=== PATIENT | female | born 1965 | race Hispanic/Latino ===

== ENCOUNTER 2017-11-30 08:57 | Day surgery (SDC) | payer BC ==
[2017-11-30] MEDS ORDERED: Bupivacaine 0.5% Inj(30mL) ONE (11:34)
[2017-11-30] MEDS ORDERED: Lidocaine 1% w Epi 1:100,000 Inj ONE (11:34)
[2017-11-30] MEDS ORDERED: Propofol 10 mg/ml Inj (20 ML) ONE ×2 (12:24→13:09)
[2017-11-30] MEDS ORDERED: Midazolam 2 MG/2 ML VIAL ONE (12:25)
[2017-11-30] MEDS ORDERED: Rocuronium 10 mg/ml (5 ml) ONE (12:42)
[2017-11-30] MEDS ORDERED: Glycopyrrolate 0.2 mg/ml (2ml vial) ONE (12:47)
[2017-11-30] MEDS ORDERED: Neostigmine Methylsulfate 3mg/3ml Syringe IV ONE (13:01)
[2017-11-30] MEDS ORDERED: Lidocaine 1% w Epi 1:100,000 Inj IJ ONE (13:05)
[2017-11-30] MEDS ORDERED: Labetalol 5 mg/ml Inj 20ML ONE (13:46)
[2017-11-30] MEDS ORDERED: Bupivacaine 0.5% Inj(30mL) IJ ONE (13:48)
[2017-11-30] MEDS ORDERED: Oxycodone/Acetaminophen 5/325 mg Tab PO PRN (13:51)
--- NOTE | 2017-11-30 13:51 | PCM.SURG1 ---
Surgeon's Initial Post Op Note - Surgeon's Notes Surgeon: Pratibha Quick MD Mental Health Associate: Ren Gracia PA-C Type of Anesthesia: General Endo Anesthesia Administered By: Dr. Cummings Pre-Operative Diagnosis: Left knee medial meniscus tear Operative Findings: see full note Post-Operative Diagnosis: same Operation Performed: left knee arthroscopy with medial meniscectomy Specimen/Specimens Removed: none Estimated Blood Loss: EBL {In ML}: 10 Blood Products Given: N/A Drains Used: No Drains Post-Op Condition: Fair Date of Surgery/Procedure: 11/30/17 Time of Surgery/Procedure: 13:51
[2017-11-30] MEDS ORDERED: Albuterol 0.083% Inhal Sol (2.5 mg/3 mL) UD INH PRN (13:55)
[2017-11-30] MEDS ORDERED: Lactated Ringer's 1,000 ML IV SCH (14:00)
[2017-11-30] MEDS ORDERED: DiphenhydrAMINE 50 mg/ml Inj IVP ONE ×2 (14:20)
[2017-11-30] MEDS ORDERED: DiphenhydrAMINE 50 mg/ml Inj ONE (14:22)
[2017-11-30 15:14] VITALS: BP 97/59; PULSE 65; RESP 20; TEMP 98.6; O2SAT 92
[2017-11-30 15:47] VITALS: BMI 29.0
[2017-11-30] MEDS ORDERED: Oxycodone/Acetaminophen 5/325 mg Tab ONE (16:26)
--- NOTE | 2017-11-30 23:25 | OP ---
PROCEDURE DATE: 11/30/2017 PREOPERATIVE DIAGNOSIS: Left knee medial meniscal tear. 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 PROCEDURE: Left knee arthroscopy with medial meniscectomy. SURGEON: Aime Quick MD BLUEPRINT TRACER: Dr. Quick is assisted by Stormy Reece, the physician reading assistant. Sreekanth Blairandra was scrubbed and present throughout the entire case. ANESTHESIA: General. COMPLICATIONS: None. ESTIMATED BLOOD LOSS: 5 mL. INDICATIONS FOR PROCEDURE: This is a 52-year-old female who presented with complaints of longstanding left knee pain. Clinical examination was consistent with some medial joint line tenderness, tenderness at the extremes of knee flexion and a positive Yaakov's. MRI examination was consistent with a tear of the medial meniscus. After a period of failed nonsurgical management, recommendations were for left knee arthroscopy. The risks, benefits, and alternatives of the procedure were discussed with the patient including the possibility of developing arthritis and chronic pain and stiffness, and she understood these risks and the informed consent was obtained. OPERATIVE PROCEDURE: After the surgical site was signed and verified in the preoperative holding area, the patient was taken to the operating room and placed supine on the operating room table. After the administration of general anesthesia, patient received 600 mg of clindamycin IV. Tourniquet was placed about the left thigh. Care was taken to make sure all bony prominences and nerves were well padded and protected. Venodyne boots were placed on the nonoperative extremity, and the left lower extremity was prepped and draped in the usual sterile fashion. The bony landmarks were identified about the left knee and the portal sites were injected with a total of 10 mL of 1% lidocaine with epi. An anterolateral arthroscopy portal was established and an arthroscope was inserted into the knee joint. Patellofemoral articulation was evaluated. Patient was noted to have some grade I chondromalacia of the patella. The medial and lateral gutters as well as suprapatellar recess were noted to be free of any loose bodies or pathologic plica. The knee was taken through range of motion and patella was noted to track normally in the trochlea. At this point, the medial compartment was evaluated through an anteromedial portal. The medial meniscus was probed and patient was noted to have a complex tear of the posterior horn extending into the mid body of the meniscus. Using a combination of basket forceps and full-radius shaver, a meniscectomy was performed, resecting the posterior horn back to a small but stable rim. The meniscal remnant was again probed and was noted to be stable. The anterior horn was noted to be intact and stable as well. Next, the chondral surfaces of the medial femoral condyle was noted to have approximately 1 x 1 cm lesion along the medial aspect of the weightbearing portion, which did not appear to be full thickness. The periphery of the lesion was probed circumferentially and no loose flaps of cartilage were appreciated. Satisfied, the intercondylar notch was then evaluated. The ACL was well visualized, probed and appeared to be intact. The PCL was also visualized and appeared to be intact. Next, the lateral compartment was evaluated. Lateral meniscus was probed and was noted to be intact. The chondral surfaces of the lateral tibial plateau was noted to have some grade I chondromalacia. The intractable portion of the popliteus tendon was also well visualized and appeared to be intact. At this point, the knee joint was irrigated through the arthroscopic cannula and all instruments were removed. All portal sites were closed using interrupted 3-0 Vicryl and Dermabond for the skin. A sterile dressing was applied and the patient was awakened from the procedure and taken to recovery room in stable condition. Aime Quick MD
== END 2017-11-30 17:00 | disposition home or self-care (01) ==
LOC: SDS 08:57
PROVIDERS: ATTEND Orthopaedic Surgery
DX: S83.242A Other tear of medial meniscus, current injury, left knee, initial encounter (principal); M22.42 Chondromalacia patellae, left knee
CPT/HCPCS: 29881; 97116; 97161; G8978; G8979; G8980; J0131; J1200; J2001; J2250; J2704; J2710; J2765; J3010; J7120 ×2

== ENCOUNTER 2018-03-24 08:50 | Emergency (ER) | payer BC ==
[2018-03-24 08:52] VITALS: BMI 31.6
[2018-03-24 09:14] VITALS: BP 144/88; PULSE 95; RESP 18; TEMP 98.8; O2SAT 99
--- NOTE | 2018-03-24 09:33 | ED PDOC ---
Arrival/HPI - General Chief Complaint: Back Pain Time Seen by Provider: 03/24/18 09:13 Historian: Patient - History of Present Illness Narrative History of Present Illness (Text): 03/24/18 09:22 A 53 year old male, with no significant past medical history, presents to the emergency department complaining of right-side neck pain for 2 weeks. Patient reports 2 weeks ago she awoke with neck pain/stiffness. 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 However starting 2 days ago, pain worsened, with pain radiating in right-side head/ear. Patient became concerned and decided to come to the ER to be evaluated. States she is able to move neck. Patient denies any injury/trauma, or any other complaints at this time. PMD: Dr. Fowler and Dr. Ibrahim 03/24/18 13:08 Time/Duration: > week (2 weeks, worsened 2 days ago) Symptom Course: Worsening Past Medical History - Provider Review Nursing Documentation Reviewed: Yes - Past History Past History: Non-Contributing - Infectious Disease Hx of Infectious Diseases: None - Tetanus Immunization Tetanus Immunization: >10 years Ago - Cardiac Hx Cardiac Disorders: No Hx Pacemaker: No - Pulmonary Hx Asthma: Yes - Neurological Hx Paralysis: No - Hematological/Oncological Hx Blood Transfusions: No Hx Blood Transfusion Reaction: No - Musculoskeletal/Rheumatological Hx Musculoskeletal Disorders: No - Psychiatric Hx Emotional Abuse: No Hx Physical Abuse: No Hx Substance Use: No - Surgical History Hx Hysterectomy: Yes Hx Musculoskeletal Surgery: Yes - Anesthesia Hx Anesthesia Reactions: No Hx Malignant Hyperthermia: No - Suicidal Assessment Feels Threatened In Home Enviroment: No Family/Social History - Physician Review Nursing Documentation Reviewed: Yes Family/Social History: No Known Family HX Smoking Status: Never Smoked Hx Alcohol Use: Yes Frequency of alcohol use: Socially Hx Substance Use: No Hx Substance Use Treatment: No Allergies/Home Meds Allergies/Adverse Reactions: Allergies apple Allergy (Verified 03/24/18 09:14) ANAPHYLAXIS ketorolac [From Toradol] Allergy (Verified 03/24/18 09:14) ANAPHYLAXIS nut - unspecified Allergy (Verified 03/24/18 09:14) ANAPHYLAXIS Penicillins Allergy (Verified 03/24/18 09:14) ANAPHYLAXIS Home Medications: Home Meds Medication Instructions Recorded Confirmed RX: Albuterol HFA [Ventolin HFA 90 2 puff IH Q4H PRN 11/20/17 03/24/18 mcg/actuation (8 g)] Review of Systems - Physician Review All systems were reviewed & negative as marked: Yes - Review of Systems Constitutional: absent: Other (no injury/trauma) Musculoskeletal: Neck Pain (right-side, radiating to right-sidehead/ear.) Physical Exam Vital Signs Reviewed: Yes Vital Signs Temp Pulse Resp BP Pulse Ox 03/24/18 09:10 98.8 F 95 H 18 144/88 99 Temperature: Afebrile Blood Pressure: Normal Pulse: Regular Respiratory Rate: Normal Appearance: Positive for: Well-Appearing, Non-Toxic, Comfortable Pain Distress: None Mental Status: Positive for: Alert and Oriented X 3 - Systems Exam Head: Present: Atraumatic, Normocephalic Pupils: Present: PERRL Extroacular Muscles: Present: EOMI Conjunctiva: Present: Normal Mouth: Present: Moist Mucous Membranes Neck: Present: Normal Range of Motion, Paraspinal Tenderness (paracervical tenderness) Respiratory/Chest: Present: Clear to Auscultation, Good Air Exchange. No: Respiratory Distress, Accessory Muscle Use Cardiovascular: Present: Regular Rate and Rhythm, Normal S1, S2. No: Murmurs Abdomen: No: Tenderness, Distention, Peritoneal Signs Back: Present: Normal Inspection Upper Extremity: Present: Normal Inspection. No: Cyanosis, Edema Lower Extremity: Present: Normal Inspection. No: Edema Neurological: Present: GCS=15, CN II-XII Intact, Speech Normal Skin: Present: Warm, Dry, Normal Color. No: Rashes Psychiatric: Present: Alert, Oriented x 3, Normal Insight, Normal Concentration Medical Decision Making ED Course and Treatment: 03/24/18 09:25 Impression: 53 year old female with right-side neck pain, worsened 2 days ago now radiating to right-side head/ear. Physical exam shows paracervical tenderness. suspect torticollis neck supple. right para cervical ttp. no fall/trauma indication for emergent imaging. advise outptuf. Plan: -- Tylenol -- Flexeril -- Reassess and disposition Progress Notes: 03/24/18 13:08 - Medication Orders Current Medication Orders: Discontinued Medications Acetaminophen (Tylenol 325mg Tab) 975 mg PO STAT STA Stop: 03/24/18 09:26 Cyclobenzaprine HCl (Flexeril) 10 mg PO STAT STA Stop: 03/24/18 09:26 - Scribe Statement The provider has reviewed the documentation as recorded by the Tony Carrera Provider Scribe Attestation: All medical record entries made by the Scribe were at my direction and personally dictated by me. I have reviewed the chart and agree that the record accurately reflects my personal performance of the history, physical exam, medical decision making, and the department course for this patient. I have also personally directed, reviewed, and agree with the discharge instructions and disposition. Disposition/Present on Arrival - Present on Arrival Any Indicators Present on Arrival: No History of DVT/PE: No History of Uncontrolled Diabetes: No Urinary Catheter: No History of Decub. Ulcer: No History Surgical Site Infection Following: None - Disposition Have Diagnosis and Disposition been Completed?: Yes Diagnosis: Neck pain Disposition: HOME/ ROUTINE Disposition Time: 09:10 Condition: STABLE Discharge Instructions (ExitCare): Neck Pain, Torticollis (DC) Additional Instructions: follow up with your doctor/clinic. you may need further testing as an outpatient. return to er with worsening symptoms or concerns. Prescriptions: Cyclobenzaprine [Cyclobenzaprine HCl] 10 mg PO DAILY PRN #10 tab PRN Reason: Muscle Spasm Lidocaine 5% [Lidoderm] 1 each TP DAILY PRN #4 patch PRN Reason: Pain, Mild (1-3) Referrals: Rogelio Betancur MD [Staff Provider] - Follow up with primary Forms: [employer] ([place])
== END 2018-03-24 09:50 | disposition home or self-care (01) ==
LOC: ED 08:52
DX: M54.2 Cervicalgia (principal)

== ENCOUNTER 2018-03-26 11:22 | Emergency (ER) | payer BC ==
[2018-03-26 11:22] VITALS: BMI 31.6
[2018-03-26 11:42] VITALS: TEMP 99.3
[2018-03-26] MEDS ORDERED: Morphine 4 mg/ml ISec IVP STA (11:45)
--- NOTE | 2018-03-26 11:55 | ED PDOC ---
Arrival/HPI - General Chief Complaint: ENT Problem Time Seen by Provider: 03/26/18 11:24 Historian: Patient - History of Present Illness Narrative History of Present Illness (Text): 03/26/18 11:46 53 year old female, with no significant past medical history, presents to the Emergency Department complaining of right sided neck pain since 2 weeks. Patient was seen in the Emergency Department on 03/22/18 for the presented symptoms and was discharged home after improvement. Patient states unchanged symptoms after discharge and was asked by NPN from [employer] to come to the ED to rule out meningitis. Patient denies any fever, fall or trauma or any cervical manipulation s/p discharge. Patient denies any other associated somatic complaints. Patient denies any fever, chills, nausea, vomiting, diarrhea, abdominal pain, chest pain, shortness of breath, cough, headache, dizziness, back pain, or any other complaints. PMD: Dr. Ibrahim Time/Duration: > week Symptom Onset: Gradual Symptom Course: Unchanged Quality: Aching Activities at Onset: Light Context: Home Past Medical History - Provider Review Nursing Documentation Reviewed: Yes - Past History Past History: Non-Contributing - Infectious Disease Hx of Infectious Diseases: None - Tetanus Immunization Tetanus Immunization: >10 years Ago - Reproductive Menopause: Yes - Cardiac Hx Cardiac Disorders: No Hx Pacemaker: No - Pulmonary Hx Asthma: Yes - Neurological Hx Paralysis: No - Hematological/Oncological Hx Blood Transfusions: No Hx Blood Transfusion Reaction: No - Musculoskeletal/Rheumatological Hx Musculoskeletal Disorders: No - Psychiatric Hx Emotional Abuse: No Hx Physical Abuse: No Hx Substance Use: No - Surgical History Hx Hysterectomy: Yes Hx Musculoskeletal Surgery: Yes - Anesthesia Hx Anesthesia Reactions: No Hx Malignant Hyperthermia: No - Suicidal Assessment Feels Threatened In Home Enviroment: No Family/Social History - Physician Review Nursing Documentation Reviewed: Yes Family/Social History: Unknown Family HX Smoking Status: Never Smoked Hx Alcohol Use: Yes Hx Substance Use: No Hx Substance Use Treatment: No Allergies/Home Meds Allergies/Adverse Reactions: Allergies apple Allergy (Verified 03/26/18 11:42) ANAPHYLAXIS ketorolac [From Toradol] Allergy (Verified 03/26/18 11:42) ANAPHYLAXIS nut - unspecified Allergy (Verified 03/26/18 11:42) ANAPHYLAXIS Penicillins Allergy (Verified 03/26/18 11:42) ANAPHYLAXIS Home Medications: Home Meds Medication Instructions Recorded Confirmed RX: Albuterol HFA [Ventolin HFA 90 2 puff IH Q4H PRN 11/20/17 03/26/18 mcg/actuation (8 g)] Review of Systems - Physician Review All systems were reviewed & negative as marked: Yes - Review of Systems Constitutional: absent: Fevers Respiratory: absent: SOB, Cough Cardiovascular: absent: Chest Pain, [place] Gastrointestinal: absent: Abdominal Pain, Diarrhea, Nausea, Vomiting Musculoskeletal: Neck Pain. absent: Back Pain Skin: absent: Rash Neurological: absent: Headache, Dizziness Physical Exam Vital Signs Reviewed: Yes Vital Signs Temp Pulse Resp BP Pulse Ox 03/26/18 11:38 99.3 F 110 H 18 159/78 H 99 Temperature: Afebrile Blood Pressure: Normal Pulse: Tachycardic Respiratory Rate: Normal Appearance: Positive for: Well-Appearing, Non-Toxic, Comfortable Pain Distress: None Mental Status: Positive for: Alert and Oriented X 3 - Systems Exam Head: Present: Atraumatic, Normocephalic Pupils: Present: PERRL Extroacular Muscles: Present: EOMI Conjunctiva: Present: Normal Neck: Present: Paraspinal Tenderness (right sided ). No: Meningeal Signs, MIDLINE TENDERNESS, JVD Respiratory/Chest: Present: Clear to Auscultation, Good Air Exchange. No: Respiratory Distress, Accessory Muscle Use Cardiovascular: Present: Regular Rate and Rhythm, Normal S1, S2. No: Murmurs Abdomen: No: Tenderness, Distention, Peritoneal Signs Back: Present: Normal Inspection Upper Extremity: Present: Normal Inspection. No: Cyanosis, Edema Lower Extremity: Present: Normal Inspection. No: Edema Neurological: Present: GCS=15, CN II-XII Intact, Speech Normal Skin: Present: Warm, Dry, Normal Color. No: Rashes Psychiatric: Present: Alert, Oriented x 3, Normal Insight, Normal Concentration Medical Decision Making ED Course and Treatment: 03/26/18 11:58 Impression: 53 year old female presents to the Emergency Department complaining of right sided neck pain. Differential Diagnosis included but are not limited to: Musculoskeletal. no menignmus, no fever, no leukocytosis. exam consistent with msk pain. Plan: -- CT of Cervical Spine -- CT of Head -- Labs -- Morphine -- Reassess and disposition Prior Visits: Notes and results from previous visits were reviewed. Progress Notes: 03/29/18 19:[address] shows no fracture. pain improved. advise outpt fu. no mengimus, no fever, 2 weeks of neck pain . - RAD Interpretation Narrative RAD Interpretations (Text): 03/26/18 12:53 CT of head reviewed by radiologist, shows: FINDINGS: HEMORRHAGE: No intracranial hemorrhage. BRAIN: Subtle subcortical white matter lucency is appreciated at the bilateral frontal lobes which likely reflects trace chronic microangiopathy. Good corticomedullary differentiation is preserved above and below the tentorium and there is no mass effect. There is no suspicious extra-axial fluid collection identified in the midline brain and appears diffusely unremarkable. VENTRICLES: Unremarkable. No hydrocephalus. CALVARIUM: No destructive bony lesion or displaced fracture identified including through the skullbase. PARANASAL SINUSES: Unremarkable as visualized. No significant inflammatory changes. MASTOID AIR CELLS: Unremarkable as visualized. No inflammatory changes. OTHER FINDINGS: None. IMPRESSION: Trace age-related neuro degenerative changes are suspected. No mass effect intracranial hemorrhage or cortical edema. No suspicious extra-axial collection. No fracture of the calvarium or skullbase appreciable. 03/26/18 13:01 CT of Cervical Spine reviewed by radiologist, shows: FINDINGS: VERTEBRAE: Subtle reversal cervical curvature without fracture or spondylolisthesis identified. Multilevel facet arthropathy identified as well as multilevel degenerative spondylosis with the C1-2 articulation is mildly degenerated but intact otherwise. Craniocervical junction appears unremarkable. The odontoid process appears normal. Prevertebral paraspinal soft tissues appear diffusely unremarkable as well. DISCS/SPINAL CANAL/NEURAL FORAMINA: Limited disc osteophyte complexes appreciated at C4-5 with degenerative changes resulting in moderate to severe left neural foraminal stenosis. [id number] bilateral C5-6 and C6-7 degenerative neural foraminal stenoses are identified without significant central stenosis accompanying these levels. OTHER FINDINGS: None. IMPRESSION: There is a subtle reversal of cervical curvature without fracture or spondylolisthesis identified. Multilevel degenerative neural foraminal stenoses are identified at mid and inferior levels beginning at C4-5 indenting at C6-7 as per above. No significant central canal stenosis appreciable. Multilevel small disc osteophyte complexes are identified at the inferior cervical spine. Radiology Orders: 03/26/18 11:45 CERVICAL SPINE W/O CONTRAST [CT] Stat Lay Out Drafter: Radiologist - Medication Orders Current Medication Orders: Morphine Sulfate (Morphine) 4 mg IVP STAT STA Stop: 03/26/18 11:46 - Scribe Statement The provider has reviewed the documentation as recorded by the Scribe Luba Mustafa. All medical record entries made by the Scribe were at my direction and personal ly dictated by me. I have reviewed the chart and agree that the record accurately reflects my personal performance of the history, physical exam, medical decision making, and the department course for this patient. I have also personally directed, reviewed, and agree with the discharge instructions and disposition. Disposition/Present on Arrival - Present on Arrival Any Indicators Present on Arrival: No History of DVT/PE: No History of Uncontrolled Diabetes: No Urinary Catheter: No History of Decub. Ulcer: No History Surgical Site Infection Following: None - Disposition Have Diagnosis and Disposition been Completed?: Yes Diagnosis: Neck pain Disposition: HOME/ ROUTINE Disposition Time: 14:00 Condition: STABLE Discharge Instructions (ExitCare): Neck Pain Additional Instructions: return to er with worseing symptoms or concerns. Referrals: Sudeep Ibrahim MD [Primary Care Provider] - Follow up with primary Forms: [employer] ([place])
--- NOTE | 2018-03-26 12:50 | CT ---
Date of service: 03/26/2018 PROCEDURE: CT HEAD WITHOUT CONTRAST. HISTORY: abreu COMPARISON: None available. TECHNIQUE: Axial computed tomography images were obtained through the head/brain without intravenous contrast. Radiation dose: Total exam DLP = 964.68 mGy-cm. This CT exam was performed using one or more of the following dose reduction techniques: Automated exposure control, adjustment of the mA and/or kV according to patient size, and/or use of iterative reconstruction technique. FINDINGS: HEMORRHAGE: No intracranial hemorrhage. BRAIN: Subtle subcortical white matter lucency is appreciated at the bilateral frontal lobes which likely reflects trace chronic microangiopathy. Good corticomedullary differentiation is preserved above and below the tentorium and there is no mass effect. There is no suspicious extra-axial fluid collection identified in the midline brain and appears diffusely unremarkable. VENTRICLES: Unremarkable. No hydrocephalus. CALVARIUM: No destructive bony lesion or displaced fracture identified including through the skullbase. PARANASAL SINUSES: Unremarkable as visualized. No significant inflammatory changes. MASTOID AIR CELLS: Unremarkable as visualized. No inflammatory changes. OTHER FINDINGS: None. IMPRESSION: Trace age-related neuro degenerative changes are suspected. No mass effect intracranial hemorrhage or cortical edema. No suspicious extra-axial collection. No fracture of the calvarium or skullbase appreciable.
--- NOTE | 2018-03-26 12:56 | CT ---
Date of service: 03/26/2018 PROCEDURE: CT Cervical Spine without contrast HISTORY: neck pain COMPARISON: None available. TECHNIQUE: Axial computed tomography images were obtained of the cervical spine without the use of intravenous contrast. Coronal and sagittal reformatted images were created and reviewed. Radiation dose: Total exam DLP = 589.16 mGy-cm. This CT exam was performed using one or more of the following dose reduction techniques: Automated exposure control, adjustment of the mA and/or kV according to patient size, and/or use of iterative reconstruction technique. FINDINGS: VERTEBRAE: Subtle reversal cervical curvature without fracture or spondylolisthesis identified. Multilevel facet arthropathy identified as well as multilevel degenerative spondylosis with the C1-2 articulation is mildly degenerated but intact otherwise. Craniocervical junction appears unremarkable. The odontoid process appears normal. Prevertebral paraspinal soft tissues appear diffusely unremarkable as well. DISCS/SPINAL CANAL/NEURAL FORAMINA: Limited disc osteophyte complexes appreciated at C4-5 with degenerative changes resulting in moderate to severe left neural foraminal stenosis. [id number] bilateral C5-6 and C6-7 degenerative neural foraminal stenoses are identified without significant central stenosis accompanying these levels. OTHER FINDINGS: None. IMPRESSION: There is a subtle reversal of cervical curvature without fracture or spondylolisthesis identified. Multilevel degenerative neural foraminal stenoses are identified at mid and inferior levels beginning at C4-5 indenting at C6-7 as per above. No significant central canal stenosis appreciable. Multilevel small disc osteophyte complexes are identified at the inferior cervical spine.
[2018-03-26] MEDS ORDERED: DiphenhydrAMINE 50 mg/ml Inj IVP STA (13:17)
[2018-03-26 13:19] LABS: BASO # 0.02 K/mm3 (0.0-2.0); BASO % 0.3 % (0.0-3.0); EOS # 0.3 (0.0-0.7); EOS % 3.9 % (1.5-5.0); GRAN # 3.91 (1.4-6.5); GRAN % 60.3 % (50.0-68.0); HEMOGLOBIN 14.2 g/dL (12.0-16.0); LYMPH # 1.9 (1.2-3.4); LYMPH % 29.9 % (22.0-35.0); MEAN CELL VOLUME 86.3 fl (80.0-105.0); MEAN CORPUSCULAR HGB CONC 33.6 g/dl (31.0-37.0); MEAN PLATELET VOLUME 10.5 fl (7.0-11.0); MONO # 0.4 (0.1-0.6); MONO % 5.6 % (1.0-6.0); RBC 4.9 10^6/uL (3.5-6.1); RED CELL DISTRIBUTION WIDTH 13.6 % (11.5-14.5); WHITE BLOOD COUNT 6.5 10^3/uL (4.5-11.0)
[2018-03-26 13:32] LABS: INR 1.01; PARTIAL THROMBOPLASTIN TIME 25.8 Seconds (25.1-36.5); PROTHROMBIN TIME 11.6 SECONDS (9.4-12.5)
[2018-03-26 14:26] LABS: ALB/GLOB RATIO 1.2 (1.1-1.8); ALBUMIN 4.3 g/dL (3.0-4.8); ALT/SGPT 39 U/L (7-56); AST/SGOT 31 U/L (14-36); BLOOD UREA NITROGEN 13 mg/dL (7-21); CALCIUM 9.8 mg/dL (8.4-10.5); GFR NON-AFRICAN AMERICAN > 60
[2018-03-26 14:53] VITALS: BP 140/78; PULSE 72; RESP 18; O2SAT 99
== END 2018-03-26 14:53 | disposition home or self-care (01) ==
LOC: ED 11:22
DX: M54.2 Cervicalgia (principal)
CPT/HCPCS: 70450; 72125; 80053; 85025; 85610; 85730; 96374; 96375; 99285; J1200; J2270

== ENCOUNTER 2018-04-03 20:41 | Observation (INO) | payer BC ==
[2018-04-03 21:21] LABS: BASO # 0.03 K/mm3 (0.0-2.0); BASO % 0.3 % (0.0-3.0); EOS # 0.2 (0.0-0.7); EOS % 1.9 % (1.5-5.0); GRAN # 6.12 (1.4-6.5); GRAN % 60.5 % (50.0-68.0); HEMOGLOBIN 13.1 g/dL (12.0-16.0); LYMPH # 3.3 (1.2-3.4); LYMPH % 32.6 % (22.0-35.0); MEAN CELL VOLUME 86.5 fl (80.0-105.0); MEAN CORPUSCULAR HGB CONC 33.5 g/dl (31.0-37.0); MEAN PLATELET VOLUME 10.6 fl (7.0-11.0); MONO # 0.5 (0.1-0.6); MONO % 4.7 % (1.0-6.0); RBC 4.52 10^6/uL (3.5-6.1); RED CELL DISTRIBUTION WIDTH 13.7 % (11.5-14.5); WHITE BLOOD COUNT 10.1 10^3/uL (4.5-11.0)
--- NOTE | 2018-04-03 21:21 | ED PDOC ---
Arrival/HPI - General Historian: Patient - History of Present Illness Narrative History of Present Illness (Text): 04/03/18 21:05 53yo female with past medical history of Asthma bib EMS for having a syncopal episode. Patient states she was planing to come to Emergency department for worsening neck pain, but had a syncopal episode this night with the worsening pain and the called the EMS. the by the bedside states he found her unconscious after hearing a thudding noise. States patient woke up, after he "stimulated" her. 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 States the pain is currently on the back of her head.States the spine Doctor gave her oxycodine, steriod and Naprosyn. She finished the steroid. Denies chest pain, focal weakness, nausea, vomiting, abdominal pain, fever, chills, rash, nuchal ridigty, visual changes, any other complaint. <Geraldine Torres A - Last Filed: 04/03/18 22:53> <Cecilio Stark - Last Filed: 04/03/18 23:47> - General Chief Complaint: Syncope Past Medical History - Provider Review Nursing Documentation Reviewed: Yes - Past History Past History: Non-Contributing - Infectious Disease Hx of Infectious Diseases: None - Tetanus Immunization Tetanus Immunization: >10 years Ago - Cardiac Hx Cardiac Disorders: No Hx Pacemaker: No - Pulmonary Hx Asthma: Yes - Neurological Hx Paralysis: No - Hematological/Oncological Hx Blood Transfusions: No Hx Blood Transfusion Reaction: No - Musculoskeletal/Rheumatological Hx Musculoskeletal Disorders: No - Psychiatric Hx Emotional Abuse: No Hx Physical Abuse: No Hx Substance Use: No - Surgical History Hx Hysterectomy: Yes Hx Musculoskeletal Surgery: Yes - Anesthesia Hx Anesthesia Reactions: No Hx Malignant Hyperthermia: No - Suicidal Assessment Feels Threatened In Home Enviroment: No <Geraldine Torres A - Last Filed: 04/03/18 22:53> Family/Social History - Physician Review Nursing Documentation Reviewed: Yes Family/Social History: Unknown Family HX Smoking Status: Never Smoked Hx Alcohol Use: Yes Hx Substance Use: No Hx Substance Use Treatment: No <Geraldine Torres A - Last Filed: 04/03/18 22:53> Allergies/Home Meds <Geraldine Torres A - Last Filed: 04/03/18 22:53> <Cecilio Stark - Last Filed: 04/03/18 23:47> Allergies/Adverse Reactions: Allergies apple Allergy (Verified 03/26/18 11:42) ANAPHYLAXIS ketorolac [From Toradol] Allergy (Verified 03/26/18 11:42) ANAPHYLAXIS nut - unspecified Allergy (Verified 03/26/18 11:42) ANAPHYLAXIS Penicillins Allergy (Verified 03/26/18 11:42) ANAPHYLAXIS Home Medications: Home Meds Medication Instructions Recorded Confirmed RX: Albuterol HFA [Ventolin HFA 90 2 puff IH Q4H PRN 11/20/17 03/26/18 mcg/actuation (8 g)] Review of Systems - Physician Review All systems were reviewed & negative as marked: Yes - Review of Systems Constitutional: Normal Eyes: Normal ENT: Normal Respiratory: Normal Cardiovascular: Normal Gastrointestinal: Normal Genitourinary Female: Normal Musculoskeletal: Neck Pain Skin: Normal Neurological: Other (Syncope) Endocrine: Normal Hemo/Lymphatic: Normal Psychiatric: Normal <Geraldine Torres - Last Filed: 04/03/18 22:53> Physical Exam Vital Signs Reviewed: Yes Vital Signs Pulse Resp BP Pulse Ox 04/03/18 20:46 106 H 20 143/91 H 95 Temperature: Afebrile Blood Pressure: Normal Pulse: Tachycardic Respiratory Rate: Normal Appearance: Positive for: Well-Appearing, Non-Toxic, Comfortable Pain Distress: None Mental Status: Positive for: Alert and Oriented X 3 - Systems Exam Head: Present: Atraumatic, Normocephalic Pupils: Present: PERRL Extroacular Muscles: Present: EOMI Conjunctiva: Present: Normal Mouth: Present: Moist Mucous Membranes Neck: Present: Normal Range of Motion, Paraspinal Tenderness (Right side), Trachea Midline. No: Meningeal Signs, MIDLINE TENDERNESS Respiratory/Chest: Present: Clear to Auscultation, Good Air Exchange. No: Respiratory Distress, Accessory Muscle Use Cardiovascular: Present: Regular Rate and Rhythm, Normal S1, S2. No: Murmurs Abdomen: No: Tenderness, Distention, Peritoneal Signs Back: Present: Normal Inspection Upper Extremity: Present: Normal Inspection. No: Cyanosis, Edema Lower Extremity: Present: Normal Inspection. No: Edema Neurological: Present: GCS=15, CN II-XII Intact, Speech Normal Skin: Present: Warm, Dry, Normal Color. No: Rashes Psychiatric: Present: Alert, Oriented x 3, Normal Insight, Normal Concentration <Geraldine Torres A - Last Filed: 04/03/18 22:53> Vital Signs Pulse Resp BP Pulse Ox 04/03/18 20:46 106 H 20 143/91 H 95 <Cecilio Stark - Last Filed: 04/03/18 23:47> Medical Decision Making ED Course and Treatment: 04/03/18 22:45 53yo female bib EMS for syncope and neck pain Labs Chest X-ray EKG Percocet Head CT EKG NSR @ 99bpm Chest X-ray NAD Pt was neurologically intact in Emergency department. her neck was supple. Head CT - No acute finding Labs was unremarkable Pt will be admitted to r/o cardiac or Neuro cause Case was DW Dr. Ibrahim and pt was admitted to his service. 04/03/18 22:52 CT Head without Intravenous Contrast. CLINICAL HISTORY: SYNCOPE TECHNIQUE: Axial computed tomography images of the head/brain without intravenous contrast. 886.80 mGy-cm COMPARISON: None provided. FINDINGS: BRAIN No acute intraparenchymal hemorrhage. No mass lesion. No CT evidence for acute territorial infarct. No midline shift or extra-axial collections. VENTRICLES: No hydrocephalus. ORBITS: The orbits are unremarkable. SINUSES AND MASTOIDS: The paranasal sinuses and mastoid air cells are clear. BONES: No fracture. SOFT TISSUES: Unremarkable. IMPRESSION: No acute intracranial abnormality. 04/03/18 22:53 - RAD Interpretation Radiology Orders: 04/03/18 20:51 HEAD W/O CONTRAST [CT] Stat 04/03/18 20:52 CHEST PORTABLE [RAD] Stat <DirGeraldine duarte A - Last Filed: 04/03/18 22:53> - Lab Interpretations Lab Results: 04/03/18 21:02 04/03/18 21:02 Lab Results 04/03/18 21:51: Urine Opiates Screen Positive H, Urine Methadone Screen Negative, Ur Barbiturates Screen Negative, Ur Phencyclidine Scrn Negative, Ur Amphetamines Screen Negative, U Benzodiazepines Scrn Positive H, U Oth Cocaine Metabols Negative, U Cannabinoids Screen Negative 04/03/18 21:51: Urine Color Light yellow, Urine Appearance Clear, Urine pH 6.0, Ur Specific [place] 1.010, Urine Protein Negative, Urine Glucose (UA) Negative, Urine Ketones Negative, Urine Blood Negative, Urine Nitrate Negative, Urine Bilirubin Negative, Urine Urobilinogen 0.2, Ur Leukocyte Esterase Negative 04/03/18 21:02: Sodium 140, Potassium 3.7, Chloride 106, Carbon Dioxide 24, Anion Gap 14, BUN 22 H, Creatinine 0.7, Est GFR ( Amer) > 60, Est GFR (Non-Af Amer) > 60, Random Glucose 116 H, Calcium 9.1, Phosphorus 3.8, Magnesium 1.9, Total Bilirubin 0.2, AST 31, ALT 33, Alkaline Phosphatase 85, Lactate Dehydrogenase 427, Total Creatine Kinase 117, Troponin I < 0.01, Total Protein 7.4, Albumin 4.2, Globulin 3.3, Albumin/Globulin Ratio 1.3 04/03/18 21:02: PT 11.2, INR 0.98, APTT 28.0 04/03/18 21:02: WBC 10.1 D, RBC 4.52, Hgb 13.1, Hct 39.1, MCV 86.5, MCH 29.0, MCHC 33.5, RDW 13.7, Plt Count 245, MPV 10.6, Gran % 60.5, Lymph % (Auto) 32.6, [place] % (Auto) 4.7, Eos % (Auto) 1.9, Baso % (Auto) 0.3, Gran # 6.12, Lymph # (Auto) 3.3, [place] # (Auto) 0.5, Eos # (Auto) 0.2, Baso # (Auto) 0.03 - RAD Interpretation Radiology Orders: 04/03/18 20:51 HEAD W/O CONTRAST [CT] Stat 04/03/18 20:52 CHEST PORTABLE [RAD] Stat - Medication Orders Current Medication Orders: Discontinued Medications Diphenhydramine HCl (Benadryl) 25 mg IVP STAT STA Stop: 04/03/18 22:53 Last Admin: 04/03/18 23:04 Dose: 25 mg IVP Administration Document 04/03/18 23:04 RD (Rec: 04/03/18 23:06 RD [id number]) Charges for Administration # of IVP Administrations 1 Morphine Sulfate (Morphine) 4 mg IVP STAT STA Stop: 04/03/18 22:53 Last Admin: 04/03/18 23:06 Dose: 4 mg MAR Pain Assessment Document 04/03/18 23:06 RD (Rec: 04/03/18 23:06 RD [id number]) Pain Reassessment Is this a pain reassessment? No Sleep Is patient sleeping during reassessment? No Presence of Pain Presence of Pain Yes Location Pain Location [facility] Outpatient Clerk IVP Administration Document 04/03/18 23:06 RD (Rec: 04/03/18 23:06 RD [id number]) Charges for Administration # of IVP Administrations 1 Oxycodone/Acetaminophen (Percocet 5/325 Mg Tab) 1 tab PO STAT STA Stop: 04/03/18 21:37 Last Admin: 04/03/18 21:48 Dose: 1 tab MAR Pain Assessment Document 04/03/18 21:48 RD (Rec: 04/03/18 21:48 RD [id number]) Pain Reassessment Is this a pain reassessment? No Sleep Is patient sleeping during reassessment? No Presence of Pain Presence of Pain Yes Location Pain Location Body Outpatient Clerk Description Pain Behavior Guarding Irritability <Cecilio Stark - Last Filed: 04/03/18 23:47> - PA / PIT LABORER / Resident Statement MD/DO has reviewed & agrees with the documentation as recorded. <Cecilio Stark - Last Filed: 04/03/18 23:47> Disposition/Present on Arrival - Present on Arrival Any Indicators Present on Arrival: No History of DVT/PE: No History of Uncontrolled Diabetes: No Urinary Catheter: No History of Decub. Ulcer: No History Surgical Site Infection Following: None - Disposition Have Diagnosis and Disposition been Completed?: Yes Disposition Time: 22:35 Patient Plan: Admission <Geraldine Torres - Last Filed: 04/03/18 22:53> <Cecilio Stark - Last Filed: 04/03/18 23:47> - Disposition Diagnosis: Syncope, Neck pain Disposition: HOSPITALIZED Condition: STABLE
[2018-04-03 21:35] LABS: INR 0.98; PROTHROMBIN TIME 11.2 SECONDS (9.4-12.5)
[2018-04-03] MEDS ORDERED: Oxycodone/Acetaminophen 5/325 mg Tab PO STA (21:36)
[2018-04-03 21:40] LABS: ALB/GLOB RATIO 1.3 (1.1-1.8); ALBUMIN 4.2 g/dL (3.0-4.8); ALT/SGPT 33 U/L (7-56); AST/SGOT 31 U/L (14-36); BLOOD UREA NITROGEN 22 mg/dL (7-21); CALCIUM 9.1 mg/dL (8.4-10.5); GFR NON-AFRICAN AMERICAN > 60
[2018-04-03 21:50] LABS: TROPONIN I < 0.01 ng/mL
[2018-04-03 22:13] LABS: URINE BILIRUBIN NEGATIVE (NEGATIVE); URINE BLOOD NEGATIVE (NEGATIVE); URINE GLUCOSE (UA) NEGATIVE (NEGATIVE); URINE LEUKOCYTE ESTERASE NEGATIVE Leu/uL (NEGATIVE); URINE PROTEIN NEGATIVE mg/dL (<30 mg/dL); URINE UROBILINOGEN 0.2 E.U./dL (<1 E.U./dL)
[2018-04-03 22:14] LABS: URINE APPEARANCE CLEAR (CLEAR); URINE COLOR LIGHT YELLOW (YELLOW)
[2018-04-03 22:25] LABS: BARBITURATES, UR NEGATIVE (NEGATIVE); BENZODIAZEPINES, UR POSITIVE (NEGATIVE); OPIATES, UR POSITIVE (NEGATIVE); PHENCYCLIDINE, UR NEGATIVE (NEGATIVE)
[2018-04-03] MEDS ORDERED: DiphenhydrAMINE 50 mg/ml Inj IVP STA (22:52)
[2018-04-03] MEDS ORDERED: Morphine 4 mg/ml ISec IVP STA (22:52)
[2018-04-04 00:23] VITALS: BMI 34.7
[2018-04-04] MEDS ORDERED: Morphine 2 mg/ml ISec IVP ONE (02:26)
[2018-04-04] MEDS ORDERED: Morphine 4 mg/ml ISec IVP ONE (07:17)
[2018-04-04] MEDS: DiphenhydrAMINE 50 mg/ml Inj IVP PRN ×4 (08:11→23:09)
[2018-04-04] MEDS ORDERED: Albuterol HFA 90 mcg/actuation (8 g) IH PRN (08:22)
--- NOTE | 2018-04-04 08:24 | CP.PCM.HP ---
<Ad Rubin - Last Filed: 04/04/18 12:45> History of Present Illness - History of Present Illness History of Present Illness: Ad Caryn PGY2 IM H&P Note for Dr. Ibrahim cc: syncope and neck pain Ms. Mancera is a 53 year old female with a PMH of DJD, foraminal stenoses, and asthma who presents to the ED following a syncopal episode earlier yesterday. The patient states that she was getting dressed to come to the ED due to her neck pain, but as she was getting dressed, she was squatting and got up too fast and passed out, fell down, and her rushed to her after hearing the thud of her falling. She states that she was unconscious for only a few seconds but recovered without intervention and denied and confusion, loss of urine/bowel control, or tongue biting. She states that she initially woke up with right sided neck pain a few weeks ago and was seen in our ED, told it was probably a neck sprain and given tylenol and flexeril, and was discharged. On follow-up, the patient had not improved and so had a CT c-spine (03/26/18) which revealed multilevel degenerative neural foraminal stenosis at C4-7, but no significant central stenosis noted. She then started to complain of right jaw pain, and went to see Dr. Dion Lacy (Spine orthopedic MD, ) who is a relative of hers, who gave her a medrol dose pack, naprosyn and oxycodone which provided little relief. MRI c-spine (04/02/18) was done which showed multilevel degeneration with foraminal stenosis (most severe at C6-7), w/ small right lateral disc protrusion @ C2-3. Patient currently denies any dizziness, changes in vision/hearing, upper/lower extremities, fevers/chills, nausea/vomiting. Her only complaint is right sided c-spine pain, associated headache, and right mandible numbness. There are no other focal deficits. 12-pt ROS was reviewed and is otherwise unremarkable. In ED, patient required narcotics for pain relief, but PO meds are not helping at this time. PMD: Dr. 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 FHx: non-contributory Present on Admission - Present on Admission Any Indicators Present on Admission: No Review of Systems - Review of Systems All systems: reviewed and no additional remarkable complaints except (as per HPI) Past Patient History - Infectious Disease Hx of Infectious Diseases: None - Tetanus Immunizations Tetanus Immunization: >10 years Ago - Past Medical History & Family History Past Medical History?: Yes Past Family History: Reviewed and not pertinent - Past Social History Smoking Status: Never Smoked Alcohol: None Drugs: Denies Home Situation {Lives}: With Family - CARDIAC Hx Cardiac Disorders: No - PULMONARY Hx Asthma: Yes Hx Sleep Apnea: Yes (C-PAP AT HOME) - NEUROLOGICAL Hx Neurological Disorder: No Hx Paralysis: No - HEENT Hx HEENT Problems: No Hx Blind: No Hx Deafness: No Hx Difficulty Chewing: No - RENAL Hx Chronic Kidney Disease: No - ENDOCRINE/METABOLIC Hx Endocrine Disorders: No - HEMATOLOGICAL/ONCOLOGICAL Hx Blood Disorders: No Hx Blood Transfusions: No Hx Blood Transfusion Reaction: No - INTEGUMENTARY Hx Dermatological Problems: No - MUSCULOSKELETAL/RHEUMATOLOGICAL Hx Musculoskeletal Disorders: Yes Hx Arthritis: Yes Hx Degenerative Joint Disease: Yes - GASTROINTESTINAL Hx Gastrointestinal Disorders: No - GENITOURINARY/GYNECOLOGICAL Hx Genitourinary Disorders: No Other/Comment: HYSTERECTOMY - PSYCHIATRIC Hx Substance Use: No - SURGICAL HISTORY Hx Appendectomy: Yes Hx Hysterectomy: Yes Hx Orthopedic Surgery: Yes - ANESTHESIA Hx Anesthesia Reactions: No Hx Malignant Hyperthermia: No Meds Allergies/Adverse Reactions: Allergies Allergy/AdvReac Type Severity Reaction Status Date / Time apple Allergy ANAPHYLAXIS Verified 03/26/18 11:42 ketorolac [From Toradol] Allergy ANAPHYLAXIS Verified 03/26/18 11:42 nut - unspecified Allergy ANAPHYLAXIS Verified 03/26/18 11:42 Penicillins Allergy ANAPHYLAXIS Verified 03/26/18 11:42 Physical Exam - Constitutional Appears: Well, Non-toxic, No Acute Distress - Head Exam Head Exam: ATRAUMATIC, NORMAL INSPECTION, NORMOCEPHALIC - Eye Exam Eye Exam: EOMI, Normal appearance, PERRL - ENT Exam ENT Exam: Mucous Membranes Moist, Normal Exam - Neck Exam Neck exam: Positive for: Full Rom, Normal Inspection. Negative for: Tenderness Additional comments: pain localized over C4-5 right side pain improves w/ flexion, but worsens with all other movements no tenderness upon palpation no upper extremity numbness/tingling - Respiratory Exam Respiratory Exam: NORMAL BREATHING PATTERN. absent: Rales, Rhonchi, Wheezes, Respiratory Distress - Cardiovascular Exam Cardiovascular Exam: RRR, +S1, +S2. absent: Systolic Murmur - GI/Abdominal Exam GI & Abdominal Exam: Normal Bowel Sounds, Soft. absent: Distended, Tenderness - Extremities Exam Extremities exam: Positive for: full ROM, normal inspection. Negative for: pedal edema - Back Exam Back exam: NORMAL INSPECTION - Neurological Exam Neurological exam: Alert, CN II-XII Intact, Normal Gait, Oriented x3 Additional comments: no motor sensory defects - Psychiatric Exam Psychiatric exam: Normal Affect, Normal Mood - Skin Skin Exam: Normal Color, Warm Results - Vital Signs Recent Vital Signs: Last Vital Signs Temp 98 F 04/04/18 08:12 Pulse 85 04/04/18 08:12 Resp 20 04/04/18 08:12 BP 123/72 04/04/18 08:12 Pulse Ox 94 L 04/04/18 08:12 - Labs Result Diagrams: 04/03/18 21:02 04/03/18 21:02 Labs: Laboratory Results - last 24 hr 04/03/18 04/03/18 04/03/18 21:02 21:02 21:02 WBC 10.1 D RBC 4.52 Hgb 13.1 Hct 39.1 MCV 86.5 MCH 29.0 MCHC 33.5 RDW 13.7 Plt Count 245 MPV 10.6 Gran % 60.5 Lymph % (Auto) 32.6 [place] % (Auto) 4.7 Eos % (Auto) 1.9 Baso % (Auto) 0.3 Gran # 6.12 Lymph # (Auto) 3.3 [place] # (Auto) 0.5 Eos # (Auto) 0.2 Baso # (Auto) 0.03 PT 11.2 INR 0.98 APTT 28.0 Sodium 140 Potassium 3.7 Chloride 106 Carbon Dioxide 24 Anion Gap 14 BUN 22 H Creatinine 0.7 Est GFR ( Amer) > 60 Est GFR (Non-Af Amer) > 60 Random Glucose 116 H Calcium 9.1 Phosphorus 3.8 Magnesium 1.9 Total Bilirubin 0.2 AST 31 ALT 33 Alkaline Phosphatase 85 Lactate Dehydrogenase 427 Total Creatine Kinase 117 Troponin I < 0.01 Total Protein 7.4 Albumin 4.2 Globulin 3.3 Albumin/Globulin Ratio 1.3 Urine Color Urine Appearance Urine pH Ur Specific [place] Urine Protein Urine Glucose (UA) Urine Ketones Urine Blood Urine Nitrate Urine Bilirubin Urine Urobilinogen Ur Leukocyte Esterase Urine Opiates Screen Urine Methadone Screen Ur Barbiturates Screen Ur Phencyclidine Scrn Ur Amphetamines Screen U Benzodiazepines Scrn U Oth Cocaine Metabols U Cannabinoids Screen 04/03/18 04/03/18 21:51 21:51 WBC RBC Hgb Hct MCV MCH MCHC RDW Plt Count MPV Gran % Lymph % (Auto) [place] % (Auto) Eos % (Auto) Baso % (Auto) Gran # Lymph # (Auto) [place] # (Auto) Eos # (Auto) Baso # (Auto) PT INR APTT Sodium Potassium Chloride Carbon Dioxide Anion Gap BUN Creatinine Est GFR ( Amer) Est GFR (Non-Af Amer) Random Glucose Calcium Phosphorus Magnesium Total Bilirubin AST ALT Alkaline Phosphatase Lactate Dehydrogenase Total Creatine Kinase Troponin I Total Protein Albumin Globulin Albumin/Globulin Ratio Urine Color Light yellow Urine Appearance Clear Urine pH 6.0 Ur Specific [place] 1.010 Urine Protein Negative Urine Glucose (UA) Negative Urine Ketones Negative Urine Blood Negative Urine Nitrate Negative Urine Bilirubin Negative Urine Urobilinogen 0.2 Ur Leukocyte Esterase Negative Urine Opiates Screen Positive H Urine Methadone Screen Negative Ur Barbiturates Screen Negative Ur Phencyclidine Scrn Negative Ur Amphetamines Screen Negative U Benzodiazepines Scrn Positive H U Oth Cocaine Metabols Negative U Cannabinoids Screen Negative Assessment & Plan - Assessment and Plan (Free Text) Assessment: 53 year old female with a PMH of DJD, foraminal stenoses, and asthma who presents to the ED following a syncopal episode, likely vasovagal in nature. Patient's main complaint at this time is her neck pain, for which she is following with an outpatient orthopedic surgeon. She denies any dizziness, or instability currently and states that she has not passed out in many years. Her asthma is stable. CXR, CT Head and EKG's were reviewed and are unremarkable. Plan: - will admit for observation on remote tele - Echo and Carotid US ordered - Neurology and Cardiology consulted, recs appreciated - cont pain medication for severe neck pain - PT eval pending - orthostatic vital signs ordered - HHD - further recs per Dr. Ibrahim Case was reviewed and discussed with attending, Dr. Patrice Rubin PGY2 <Sudeep Ibrahim - Last Filed: 04/04/18 18:19> Results - Vital Signs Recent Vital Signs: Last Vital Signs Temp 98.5 F 04/04/18 17:20 Pulse 92 H 04/04/18 17:20 Resp 18 04/04/18 17:20 BP 132/68 04/04/18 17:20 Pulse Ox 94 L 04/04/18 17:20 - Labs Result Diagrams: 04/03/18 21:02 04/03/18 21:02 Labs: Laboratory Results - last 24 hr 04/03/18 04/03/18 04/03/18 21:02 21:02 21:02 WBC 10.1 D RBC 4.52 Hgb 13.1 Hct 39.1 MCV 86.5 MCH 29.0 MCHC 33.5 RDW 13.7 Plt Count 245 MPV 10.6 Gran % 60.5 Lymph % (Auto) 32.6 [place] % (Auto) 4.7 Eos % (Auto) 1.9 Baso % (Auto) 0.3 Gran # 6.12 Lymph # (Auto) 3.3 [place] # (Auto) 0.5 Eos # (Auto) 0.2 Baso # (Auto) 0.03 PT 11.2 INR 0.98 APTT 28.0 Sodium 140 Potassium 3.7 Chloride 106 Carbon Dioxide 24 Anion Gap 14 BUN 22 H Creatinine 0.7 Est GFR ( Amer) > 60 Est GFR (Non-Af Amer) > 60 Random Glucose 116 H Calcium 9.1 Phosphorus 3.8 Magnesium 1.9 Total Bilirubin 0.2 AST 31 ALT 33 Alkaline Phosphatase 85 Lactate Dehydrogenase 427 Total Creatine Kinase 117 Troponin I < 0.01 Total Protein 7.4 Albumin 4.2 Globulin 3.3 Albumin/Globulin Ratio 1.3 Urine Color Urine Appearance Urine pH Ur Specific [place] Urine Protein Urine Glucose (UA) Urine Ketones Urine Blood Urine Nitrate Urine Bilirubin Urine Urobilinogen Ur Leukocyte Esterase Urine Opiates Screen Urine Methadone Screen Ur Barbiturates Screen Ur Phencyclidine Scrn Ur Amphetamines Screen U Benzodiazepines Scrn U Oth Cocaine Metabols U Cannabinoids Screen 04/03/18 04/03/18 21:51 21:51 WBC RBC Hgb Hct MCV MCH MCHC RDW Plt Count MPV Gran % Lymph % (Auto) [place] % (Auto) Eos % (Auto) Baso % (Auto) Gran # Lymph # (Auto) [place] # (Auto) Eos # (Auto) Baso # (Auto) PT INR APTT Sodium Potassium Chloride Carbon Dioxide Anion Gap BUN Creatinine Est GFR ( Amer) Est GFR (Non-Af Amer) Random Glucose Calcium Phosphorus Magnesium Total Bilirubin AST ALT Alkaline Phosphatase Lactate Dehydrogenase Total Creatine Kinase Troponin I Total Protein Albumin Globulin Albumin/Globulin Ratio Urine Color Light yellow Urine Appearance Clear Urine pH 6.0 Ur Specific [place] 1.010 Urine Protein Negative Urine Glucose (UA) Negative Urine Ketones Negative Urine Blood Negative Urine Nitrate Negative Urine Bilirubin Negative Urine Urobilinogen 0.2 Ur Leukocyte Esterase Negative Urine Opiates Screen Positive H Urine Methadone Screen Negative Ur Barbiturates Screen Negative Ur Phencyclidine Scrn Negative Ur Amphetamines Screen Negative U Benzodiazepines Scrn Positive H U Oth Cocaine Metabols Negative U Cannabinoids Screen Negative Assessment & Plan - Assessment and Plan (Free Text) Assessment: Pt seen and examined. I have reviewed the note of the medical research scientist and agree with it. I have discussed the assessment and plan with the resident. I have reviewed the patient's labs and medications. Pt with acute neck pain. MRI was done and was reviewed. She has DJD and has acute pain. She probably had a vasovagal episode and that has improved. She has been placed on IV Morphine for pain and percocet. She was going to follow up with her spine doctor. I will get cardiology and neurology to see the pt. I spoke to Dr Cai (cardiology). EKG was reviewed. She will be placed on Benadryl for her pruritus.
[2018-04-04] MEDS ORDERED: Albuterol 0.083% Inhal Sol (2.5 mg/3 mL) UD IH PRN (08:30)
--- NOTE | 2018-04-04 08:32 | CT ---
Date of service: 04/03/2018 PROCEDURE: CT HEAD WITHOUT CONTRAST. HISTORY: Syncope COMPARISON: None available. TECHNIQUE: Axial computed tomography images were obtained through the head/brain without intravenous contrast. Radiation dose: Total exam DLP = 886.8 mGy-cm. This CT exam was performed using one or more of the following dose reduction techniques: Automated exposure control, adjustment of the mA and/or kV according to patient size, and/or use of iterative reconstruction technique. FINDINGS: HEMORRHAGE: No intracranial hemorrhage. BRAIN: No mass effect or edema. No atrophy or chronic microvascular ischemic changes. VENTRICLES: Unremarkable. No hydrocephalus. CALVARIUM: Unremarkable. PARANASAL SINUSES: Unremarkable as visualized. No significant inflammatory changes. MASTOID AIR CELLS: Unremarkable as visualized. No inflammatory changes. OTHER FINDINGS: The report concurs with the preliminary [facility] report IMPRESSION: No acute intracranial findings
--- NOTE | 2018-04-04 09:11 | RAD ---
Date of service: 04/03/2018 HISTORY: admission COMPARISON: 11/20/2017. FINDINGS: LUNGS: The lungs are well inflated and clear. PLEURA: No pleural effusions or pneumothorax. CARDIOVASCULAR: The heart is normal in size. No aortic atherosclerotic calcification present. OSSEOUS STRUCTURES: Within normal limits for the patient's age. VISUALIZED UPPER ABDOMEN: Normal. OTHER FINDINGS: None. IMPRESSION: No active pulmonary disease.
--- NOTE | 2018-04-04 09:47 | CON ---
DATE: 04/04/2018 INDICATIONS: Syncope. HISTORY OF PRESENT ILLNESS: This is a 53-year-old woman with a syncopal event at home, admitted through the emergency room yesterday. She was bending over in her closet and reached up for an item, felt lightheaded and passed out briefly. Her heard a noise and came and found her unresponsive for several minutes. She woke up and felt better. There was no chest pain, shortness of breath, palpitation, vertigo, edema, claudication. No fever, chills, cough, sputum production, hemoptysis. No abdominal pain, nausea, vomiting, diarrhea, constipation, melena. There is no prior syncope. She has been suffering with neck pain and, more recently, facial pain. She has been undergoing evaluation and had recent MRIs of the neck done. 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 She has a history of asthma and mitral valve prolapse. There is no history of rheumatic fever, myocardial infarction, angina, congestive heart failure, arrhythmia, stroke, TIA, diabetes, gout, hypertension, hyperlipidemia or rheumatic fever. 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 MEDICATIONS: Include; cyclobenzaprine, Lidoderm patch and Ventolin p.r.n. ALLERGIES: SHE NOTES ALLERGIES TO KETOROLAC AND PENICILLIN. SOCIAL HISTORY: She lives at home. She does not smoke cigarettes. She does not drink alcohol. FAMILY HISTORY: Notable for heart disease in her mother. REVIEW OF SYSTEMS: A 10-point review of systems otherwise unremarkable except as noted above. PHYSICAL EXAMINATION: GENERAL: She is a well-developed woman lying in bed in no acute distress. There is some neck pain. VITAL SIGNS: She is in sinus rhythm 85 beats per minute, afebrile, 123/72 blood pressure, respirations 18-20 and O2 sat 94% to 96% on room air. HEENT: Exam reveals no neck vein distention, thyromegaly, carotid bruits. Mucous membranes moist. Conjunctivae pink. NECK: Supple. LUNGS: Lung donaldson clear. HEART: Revealed normal first and second heart sounds. ABDOMEN: Soft. Bowel sounds present. No mass, organomegaly, tenderness, rebound or guarding. No CVA tenderness. No palpable abdominal aortic aneurysm. EXTREMITIES: Revealed no cyanosis, clubbing or edema. NEUROLOGICALLY: Awake, alert and oriented. PSYCHIATRIC: Normal as to mood and affect. SKIN: Warm and dry. No rash or cellulitis. LABORATORY AND IMAGING STUDIES: A CT scan of the head was done, results are pending. Portable chest x-ray is not interpreted yet, is unremarkable to my interpretation. EKG showed sinus rhythm, no acute changes. CBC is unremarkable. PT/INR and PTT unremarkable. Electrolytes, BUN and creatinine unremarkable. Blood sugar 116, calcium 9.1 and magnesium 1.9. LFTs unremarkable. CK 170 and troponin less than 0.01. Urinalysis is unremarkable. Toxicology is positive for opiates and benzodiazepine. ASSESSMENT: Zandra Mancera is a 53-year-old woman with chronic neck and facial pain, who while bending over and then standing up experienced a syncopal episode at home. She slumped to the ground without injury. She was observed to be unresponsive for several minutes. She was brought to the emergency room. There is no evidence of myocardial infarction or arrhythmia. It appears to have been a vasovagal episode. She has no prior syncopes. She does have chronic neck and recently facial pain on the left side, this is being evaluated. She has had neuro imaging studies which are pending. At this time, I will order an EKG and an echocardiogram to further evaluate her history of mitral valve prolapse. A carotid ultrasound is ordered. Neurologic consultation is pending. I will check postural vital signs. We will check stool for occult blood. She can be out of bed to chair. She is getting pain medication. I have discussed the case with Dr. Ibrahim. I will follow along with you. I will make additional recommendations based on her clinical course. Jhonny Cai MD SUSIE
--- NOTE | 2018-04-04 09:59 | CARD ---
APPROVED REPORT Date of service: 04/03/2018 EKG Measurement Heart [id number] <Conclusion> Normal sinus rhythm Normal ECG
[2018-04-04] MEDS: Lidocaine 5% Patch TD SCH (11:49)
[2018-04-04] MEDS: Morphine 4 mg/ml ISec IVP PRN ×3 (13:11→23:10)
--- NOTE | 2018-04-04 15:25 | US ---
PROCEDURE: Bilateral carotid artery duplex ultrasound HISTORY: Carotid stenosis syncope PHYSICIAN(S): Merrick Fowler MD. TECHNIQUE: Duplex sonography and color-flow Doppler were used to evaluate the carotid bifurcations and limited segments of the vertebral arteries bilaterally. FINDINGS: There is mild smooth hypoechoic plaque noted at the carotid bifurcations bilaterally. The peak systolic velocity in the proximal right internal carotid artery is 77 cm/sec. This corresponds to a 20 to 39% proximal right ICA stenosis. Normal systolic velocities are noted in the proximal right external carotid artery. There is antegrade flow in the dominant right vertebral artery. The peak systolic velocity in the proximal left internal carotid artery is 87 cm/sec. This corresponds to a 20 to 39% proximal left ICA stenosis. Normal systolic velocities are noted in the proximal left external carotid artery. There is antegrade flow in the atretic left vertebral artery. IMPRESSION: 1. Bilateral 20-39% proximal ICA stenoses. 2. Antegrade flow in both vertebral arteries.
--- NOTE | 2018-04-04 15:35 | CARD ---
APPROVED REPORT Date of service: 04/04/2018 EKG Measurement Heart [id number] <Conclusion> Normal sinus rhythm Normal ECG
[2018-04-04] MEDS ORDERED: DiphenhydrAMINE 50 mg/ml Inj IVP STA (18:13)
[2018-04-04] MEDS: Oxycodone/Acetaminophen 5/325 mg Tab PO PRN (18:44)
--- NOTE | 2018-04-05 05:08 | CON ---
DATE: 04/04/2018 HISTORY OF PRESENT ILLNESS: This is a 53-year-old female with past medical history of facial pain and degenerative disease of the cervical spine and also has a history of asthma and mitral valve prolapse. The patient was bending over in her closet to reach for the items, felt lightheaded, and passed out briefly. heard the noise and found her unresponsive for few minutes and brought her here. The patient felt okay, no chest pain, no shortness of breath. MEDICATIONS: Cyclobenzaprine, Lidoderm patch. ALLERGIES: ALLERGIC TO PENICILLIN. SOCIAL HISTORY: Lives at home. Does not smoke, does not drink. REVIEW OF SYSTEMS: Ten-point review of systems was negative. PHYSICAL EXAMINATION HEENT: Normocephalic, atraumatic. NECK: Supple . NEUROLOGIC: Awake, alert, oriented. No aphasia. Cranial nerves II-XII are tested. Pupils reactive. Spontaneous movement of the extremities noted. Deep tendon reflexes 1+. Plantars downgoing. Sensory appears intact. Cerebellar gait deferred. IMPRESSION: A 53-year-old female with chronic neck and facial pain and experienced syncopal episode wile looking up and became unresponsive for several minutes, brought to the emergency room and appears most likely a vasovagal episode versus syncope. Workup in progress and will follow up. CAT scan of the head was done, which was reported negative. We will follow up. Ba Cee MD
[2018-04-05] MEDS: DiphenhydrAMINE 50 mg/ml Inj IVP PRN (05:48)
[2018-04-05] MEDS: Morphine 4 mg/ml ISec IVP PRN (05:48)
[2018-04-05 08:00] VITALS: BP 133/77; RESP 20; TEMP 98.1; O2SAT 96
--- NOTE | 2018-04-05 08:21 | CP.PCM.PN ---
Subjective - Date & Time of Evaluation Date of Evaluation: 04/05/18 Time of Evaluation: 07:00 - Subjective Subjective: Stable on 3R. No CP, SOB, Syncope V/S noted. RSR PE: Lungs: clear Cor.: S1S2 Abd.: soft Ext.: no edema Neuro.: alert ECG 04/04: RSR, WNL Echo: Nl LV. No MVP seen. See report. Objective - Vital Signs/Intake and Output Vital Signs (last 24 hours): Temp Pulse Resp BP Pulse Ox 98.1 F 95 H 20 133/77 96 04/05/18 08:00 04/05/18 08:00 04/05/18 08:00 04/05/18 08:00 04/05/18 08:00 Intake and Output: 04/05/18 04/05/18 06:59 18:59 Intake Total 780 Balance 780 - Medications Medications: Current Medications Albuterol Sulfate (Albuterol 0.083% Inhal Christy (2.5 Mg/3 Ml) Ud) 2.5 mg IH [id number] PRN PRN Reason: Cough and congestion Diphenhydramine HCl (Benadryl) 25 mg IVP Q4H PRN PRN Reason: Allergy symptoms Last Admin: 04/05/18 05:48 Dose: 25 mg Lidocaine (Lidoderm) 1 ea TD DAILY SARAH Last Admin: 04/04/18 11:49 Dose: 1 ea Morphine Sulfate (Morphine) 4 mg IVP Q4H PRN PRN Reason: Pain, severe (8-10) Last Admin: 04/05/18 05:48 Dose: 4 mg Oxycodone/Acetaminophen (Percocet 5/325 Mg Tab) 1 tab PO Q4H PRN PRN Reason: Pain, moderate (4-7) Stop: 04/07/18 07:21 Last Admin: 04/04/18 18:44 Dose: 1 tab - Labs Labs: 04/03/18 21:02 04/03/18 21:02 PT 11.2 SECONDS (9.4-12.5) 04/03/18 21:02 INR 0.98 04/03/18 21:02 APTT 28.0 Seconds (25.1-36.5) 04/03/18 21:02 Assessment and Plan - Assessment and Plan (Free Text) Assessment: Syncope at home, probably vasovagal spell H/O MVP Neck and Facial Pain, Discogenic Disease 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 and Dr. Ibrahim Check Postural V/S (ordered) Pain Management
--- NOTE | 2018-04-05 08:46 | CARD ---
APPROVED REPORT Date of service: 04/04/2018 EXAM: Two-dimensional and M-mode echocardiogram with Doppler and color Doppler. Other Information Quality : GoodRhythm : INDICATION Syncope , H/O MVP 2D DIMENSIONS Left Atrium (2D)3.9 (1.6-4.0cm)IVSd1.0 (0.7-1.1cm) LVDd3.7 (3.9-5.9cm)PWd1.1 (0.7-1.1cm) LVDs2.6 (2.5-4.0cm)FS (%) 29.6 % LVEF (%)57.0 (>50%) M-Mode DIMENSIONS Aortic Root3.20 (2.2-3.7cm)Aortic Cusp Exc.1.90 (1.5-2.0cm) Aortic Valve AoV Peak Cljaekjm832.0cm/s Mitral Valve MV E Vyypglzr75.8cm/sMV A Baefxlaz95.7cm/sE/A ratio1.0 TDI Lateral E' Peak V11.60cm/sMedial E' Peak V9.26cm/sE/Lateral E'8.2 E/Medial E'10.2 Pulmonary Valve PV Peak Dprrvbak424.0cm/sPV Peak Grad.4mmHg Tricuspid Valve TR Peak Uoopybel537bj/sRAP QXIHZYJU86hjJtFV Peak Gr.24mmHg [id number] LEFT VENTRICLE The left ventricle is normal size. There is normal left ventricular wall thickness. The left ventricular function is normal. The left ventricular ejection fraction is within the normal range. There is normal LV segmental wall motion. RIGHT VENTRICLE The right ventricle is normal size. ATRIA The left atrium size is normal. The right atrium size is normal. The interatrial septum is intact with no evidence for an atrial septal defect. AORTIC VALVE The aortic valve is normal in structure. MITRAL VALVE The mitral valve is normal in structure. Mitral regurgitation is trace. TRICUSPID VALVE The tricuspid valve is normal in structure. There is trace tricuspid regurgitation. PULMONIC VALVE The pulmonic valve is not well visualized. GREAT VESSELS The aortic root is normal in size. PERICARDIAL EFFUSION There is no pericardial effusion. <Conclusion> The left ventricle is normal size. There is normal left ventricular wall thickness. The left ventricular function is normal. No MVP seen.
[2018-04-05] MEDS: Lidocaine 5% Patch TD SCH (09:40)
[2018-04-05] MEDS: Oxycodone/Acetaminophen 5/325 mg Tab PO PRN (09:41)
--- NOTE | 2018-04-05 10:09 | CP.PCM.DIS ---
<Ad Rubin - Last Filed: 04/05/18 11:24> Provider - Provider Date of Admission: 04/03/18 22:33 Attending physician: Sudeep Ibrahim MD Primary care physician: Sudeep Ibrahim MD Time Spent in preparation of Discharge (in minutes): 40 Diagnosis - Discharge Diagnosis (1) Vasovagal syncope Status: Acute (2) Neural foraminal stenosis of cervical spine Status: Chronic (3) Neck pain Status: Chronic Hospital Course - Lab Results Lab Results: Most Recent Lab Values WBC 10.1 10^3/uL (4.5-11.0) D 04/03/18 21:02 RBC 4.52 10^6/uL (3.5-6.1) 04/03/18 21: Hgb 13.1 g/dL (12.0-16.0) 04/03/18 21: Hct 39.1 % (36.0-48.0) 04/03/18 21: MCV 86.5 fl (80.0-105.0) 04/03/18 21: MCH 29.0 pg (25.0-35.0) 04/03/18 21:02 MCHC 33.5 g/dl (31.0-37.0) 04/03/18 21: RDW 13.7 % (11.5-14.5) 04/03/18 21:02 Plt Count 245 10^3/uL (120.0-450.0) 04/03/18 21:02 MPV 10.6 fl (7.0-11.0) 04/03/18 21: Gran % 60.5 % (50.0-68.0) 04/03/18 21: Lymph % (Auto) 32.6 % (22.0-35.0) 04/03/18 21: Love % (Auto) 4.7 % (1.0-6.0) 04/03/18 21: Eos % (Auto) 1.9 % (1.5-5.0) 04/03/18 21:02 Baso % (Auto) 0.3 % (0.0-3.0) 04/03/18 21: Gran # 6.12 (1.4-6.5) 04/03/18 21:02 Lymph # (Auto) 3.3 (1.2-3.4) 04/03/18 21:02 Love # (Auto) 0.5 (0.1-0.6) 04/03/18 21:02 Eos # (Auto) 0.2 (0.0-0.7) 04/03/18 21:02 Baso # (Auto) 0.03 K/mm3 (0.0-2.0) 04/03/18 21:02 PT 11.2 SECONDS (9.4-12.5) 04/03/18 21:02 INR 0.98 04/03/18 21:02 APTT 28.0 Seconds (25.1-36.5) 04/03/18 21:02 Sodium 140 mmol/L (132-148) 04/03/18 21: Potassium 3.7 mmol/L (3.6-5.0) 04/03/18 21: Chloride 106 mmol/L (98-107) 04/03/18 21:02 Carbon Dioxide 24 mmol/L (21-33) 04/03/18 21:02 Anion Gap 14 (10-20) 04/03/18 21:02 BUN 22 mg/dL (7-21) H 04/03/18 21:02 Creatinine 0.7 mg/dl (0.7-1.2) 04/03/18 21:02 Est GFR ( Amer) > 60 04/03/18 21:02 Est GFR (Non-Af Amer) > 60 04/03/18 21:02 Random Glucose 116 mg/dL (70-110) H 04/03/18 21:02 Calcium 9.1 mg/dL (8.4-10.5) 04/03/18 21:02 Phosphorus 3.8 mg/dL (2.5-4.5) 04/03/18 21:02 Magnesium 1.9 mg/dL (1.7-2.2) 04/03/18 21:02 Total Bilirubin 0.2 mg/dL (0.2-1.3) 04/03/18 21:02 AST 31 U/L (14-36) 04/03/18 21:02 ALT 33 U/L (7-56) 04/03/18 21:02 Alkaline Phosphatase 85 U/L (38-126) 04/03/18 21:02 Lactate Dehydrogenase 427 U/L (333-699) 04/03/18 21:02 Total Creatine Kinase 117 U/L (35-230) 04/03/18 21:02 Troponin I < 0.01 ng/mL 04/03/18 21:02 Total Protein 7.4 g/dL (5.8-8.3) 04/03/18 21:02 Albumin 4.2 g/dL (3.0-4.8) 04/03/18 21:02 Globulin 3.3 gm/dL 04/03/18 21:02 Albumin/Globulin Ratio 1.3 (1.1-1.8) 04/03/18 21:02 Urine Color Light yellow (YELLOW) 04/03/18 21:51 Urine Appearance Clear (CLEAR) 04/03/18 21:51 Urine pH 6.0 (4.7-8.0) 04/03/18 21:51 Ur Specific Edwall 1.010 (1.005-1.035) 04/03/18 21:51 Urine Protein Negative mg/dL (<30 mg/dL) 04/03/18 21:51 Urine Glucose (UA) Negative mg/dL (NEGATIVE) 04/03/18 21:51 Urine Ketones Negative mg/dL (NEGATIVE) 04/03/18 21:51 Urine Blood Negative (NEGATIVE) 04/03/18 21:51 Urine Nitrate Negative (NEGATIVE) 04/03/18 21:51 Urine Bilirubin Negative (NEGATIVE) 04/03/18 21:51 Urine Urobilinogen 0.2 E.U./dL (<1 E.U./dL) 04/03/18 21:51 Ur Leukocyte Esterase Negative Lesly/uL (NEGATIVE) 04/03/18 21:51 Urine Opiates Screen Positive (NEGATIVE) H 04/03/18 21:51 Urine Methadone Screen Negative (NEGATIVE) 04/03/18 21:51 Ur Barbiturates Screen Negative (NEGATIVE) 04/03/18 21:51 Ur Phencyclidine Scrn Negative (NEGATIVE) 04/03/18 21:51 Ur Amphetamines Screen Negative (NEGATIVE) 04/03/18 21:51 U Benzodiazepines Scrn Positive (NEGATIVE) H 04/03/18 21:51 U Oth Cocaine Metabols Negative (NEGATIVE) 04/03/18 21:51 U Cannabinoids Screen Negative (NEGATIVE) 04/03/18 21:51 - Hospital Course Hospital Course: 53 year old female with a PMH of DJD, foraminal stenoses, and asthma who was admitted for a vasovagal syncopal episode. The patient states that she was getting dressed to come to the ED due to her neck pain, but as she was getting dressed, she was squatting and got up too fast and passed out, fell down, and her rushed to her after hearing the thud of her falling. She states that she was unconscious for only a few seconds but recovered without intervention and denied and confusion, loss of urine/bowel control, or tongue biting. CT head, echocardiogram and carotid US were unremarkable. Orthostatic vital signs were also reviewed and were negative for orthostasis. Cardiology and Neurology were consulted, and also evaluated the patient. Patient has chronic neck pain for which she saw Dr. Dion Lacy (Spine orthopedic MD, ) who is a relative of hers, who gave her a medrol dose pack, naprosyn and oxycodone which provided little relief. Patient denied any focal motor deficits and any s ensory changes other than right mandible numbness, which is not new. Patient continues to be in pain but refused prescription for opiates as she would prefer it in a controlled setting. She is educated on her vasovagal diagnosis and will follow-up with neurologist (information given for Dr. Cee, Dr. Ace and Dr. Palacios) and her spine surgeon (Dr. Lacy) as outpatient. She was also instructed to continue physical therapy on her neck in the meantime and continue with NSAIDS for pain relief. Prior imaging was reviewed: CT c-spine (03/26/18) revealed multilevel degenerative neural foraminal stenosis at C4-7, but no significant central stenosis noted. MRI c-spine (04/02/18) revealed multilevel degeneration with foraminal stenosis (most severe at C6-7), w/ small right lateral disc protrusion @ C2-3. Discharge Exam - Head Exam Head Exam: ATRAUMATIC, NORMAL INSPECTION, NORMOCEPHALIC - Eye Exam Eye Exam: EOMI, Normal appearance, PERRL - ENT Exam ENT Exam: Mucous Membranes Moist, Normal External Ear Exam, Normal Oropharynx - Neck Exam Neck exam: Full Rom (pain improved with neck flexion but worsens with other movements), Normal Inspection Additional comments: no vertebral tenderness noted - Respiratory Exam Respiratory Exam: NORMAL BREATHING PATTERN. absent: Rales, Rhonchi, Wheezes, Respiratory Distress - Cardiovascular Exam Cardiovascular Exam: RRR, +S1, +S2. absent: Systolic Murmur - GI/Abdominal Exam GI & Abdominal Exam: Normal Bowel Sounds, Soft. absent: Distended, Tenderness - Extremities Exam Extremities exam: full ROM, normal inspection, pedal pulses present - Back Exam Back exam: NORMAL INSPECTION, paraspinal tenderness (c spine around C4-6). absent: tenderness, vertebral tenderness - Neurological Exam Neurological exam: Alert, CN II-XII Intact, Oriented x3, Reflexes Normal - Psychiatric Exam Psychiatric exam: Anxious, Normal Affect - Skin Skin Exam: Normal Color, Warm Discharge Plan - Follow Up Plan Condition: STABLE Disposition: HOME/ ROUTINE Instructions: Syncope (Fainting) (DC), Chronic Neck Pain (DC) Additional Instructions: - please follow-up with spine orthopedic (Dr. Lacy) within 1 week - please follow-up with a neurologist within 1 week, Drs. Cee/Db/Suzanne information has been provided - please follow-up with PMD Dr. Ibrahim within 1 week - continue NSAIDS for pain relief - continue physical therapy for range of motion exercises - please continue your medications as prescribed Referrals: Neel Palacios MD [Staff Provider] - Sudeep Ibrahim MD [Staff Provider] - Jose Cee MD [Staff Provider] - Tadeo Ace MD [Staff Provider] - Dion Lacy MD [Non-Staff] - <Sudeep Ibrahim - Last Filed: 04/05/18 19:05> Provider - Provider Date of Admission: 04/03/18 22:33 Attending physician: Sudeep Ibrahim MD Primary care physician: Cecilio Fowler MD Hospital Course - Lab Results Lab Results: Most Recent Lab Values WBC 10.1 10^3/uL (4.5-11.0) D 04/03/18 21:02 RBC 4.52 10^6/uL (3.5-6.1) 04/03/18 21:02 Hgb 13.1 g/dL (12.0-16.0) 04/03/18 21:02 Hct 39.1 % (36.0-48.0) 04/03/18 21: MCV 86.5 fl (80.0-105.0) 04/03/18 21: MCH 29.0 pg (25.0-35.0) 04/03/18 21: MCHC 33.5 g/dl (31.0-37.0) 04/03/18 21: RDW 13.7 % (11.5-14.5) 04/03/18 21: Plt Count 245 10^3/uL (120.0-450.0) 04/03/18 21: MPV 10.6 fl (7.0-11.0) 04/03/18 21: Gran % 60.5 % (50.0-68.0) 04/03/18 21: Lymph % (Auto) 32.6 % (22.0-35.0) 04/03/18 21: Love % (Auto) 4.7 % (1.0-6.0) 04/03/18 21: Eos % (Auto) 1.9 % (1.5-5.0) 04/03/18 21: Baso % (Auto) 0.3 % (0.0-3.0) 04/03/18 21: Gran # 6.12 (1.4-6.5) 04/03/18 21: Lymph # (Auto) 3.3 (1.2-3.4) 04/03/18 21: Love # (Auto) 0.5 (0.1-0.6) 04/03/18 21: Eos # (Auto) 0.2 (0.0-0.7) 04/03/18 21: Baso # (Auto) 0.03 K/mm3 (0.0-2.0) 04/03/18 21: PT 11.2 SECONDS (9.4-12.5) 04/03/18 21: INR 0.98 04/03/18 21: APTT 28.0 Seconds (25.1-36.5) 04/03/18 21:02 Sodium 140 mmol/L (132-148) 04/03/18 21: Potassium 3.7 mmol/L (3.6-5.0) 04/03/18 21:02 Chloride 106 mmol/L (98-107) 04/03/18 21:02 Carbon Dioxide 24 mmol/L (21-33) 04/03/18 21:02 Anion Gap 14 (10-20) 04/03/18 21:02 BUN 22 mg/dL (7-21) H 04/03/18 21:02 Creatinine 0.7 mg/dl (0.7-1.2) 04/03/18 21:02 Est GFR ( Amer) > 60 04/03/18 21:02 Est GFR (Non-Af Amer) > 60 04/03/18 21:02 Random Glucose 116 mg/dL (70-110) H 04/03/18 21:02 Calcium 9.1 mg/dL (8.4-10.5) 04/03/18 21:02 Phosphorus 3.8 mg/dL (2.5-4.5) 04/03/18 21:02 Magnesium 1.9 mg/dL (1.7-2.2) 04/03/18 21:02 Total Bilirubin 0.2 mg/dL (0.2-1.3) 04/03/18 21:02 AST 31 U/L (14-36) 04/03/18 21:02 ALT 33 U/L (7-56) 04/03/18 21:02 Alkaline Phosphatase 85 U/L (38-126) 04/03/18 21:02 Lactate Dehydrogenase 427 U/L (333-699) 04/03/18 21:02 Total Creatine Kinase 117 U/L (35-230) 04/03/18 21:02 Troponin I < 0.01 ng/mL 04/03/18 21:02 Total Protein 7.4 g/dL (5.8-8.3) 04/03/18 21:02 Albumin 4.2 g/dL (3.0-4.8) 04/03/18 21:02 Globulin 3.3 gm/dL 04/03/18 21:02 Albumin/Globulin Ratio 1.3 (1.1-1.8) 04/03/18 21:02 Urine Color Light yellow (YELLOW) 04/03/18 21:51 Urine Appearance Clear (CLEAR) 04/03/18 21:51 Urine pH 6.0 (4.7-8.0) 04/03/18 21:51 Ur Specific Edwall 1.010 (1.005-1.035) 04/03/18 21:51 Urine Protein Negative mg/dL (<30 mg/dL) 04/03/18 21:51 Urine Glucose (UA) Negative mg/dL (NEGATIVE) 04/03/18 21:51 Urine Ketones Negative mg/dL (NEGATIVE) 04/03/18 21:51 Urine Blood Negative (NEGATIVE) 04/03/18 21:51 Urine Nitrate Negative (NEGATIVE) 04/03/18 21:51 Urine Bilirubin Negative (NEGATIVE) 04/03/18 21:51 Urine Urobilinogen 0.2 E.U./dL (<1 E.U./dL) 04/03/18 21:51 Ur Leukocyte Esterase Negative Lesly/uL (NEGATIVE) 04/03/18 21:51 Urine Opiates Screen Positive (NEGATIVE) H 04/03/18 21:51 Urine Methadone Screen Negative (NEGATIVE) 04/03/18 21:51 Ur Barbiturates Screen Negative (NEGATIVE) 04/03/18 21:51 Ur Phencyclidine Scrn Negative (NEGATIVE) 04/03/18 21:51 Ur Amphetamines Screen Negative (NEGATIVE) 04/03/18 21:51 U Benzodiazepines Scrn Positive (NEGATIVE) H 04/03/18 21:51 U Oth Cocaine Metabols Negative (NEGATIVE) 04/03/18 21:51 U Cannabinoids Screen Negative (NEGATIVE) 04/03/18 21:51 - Hospital Course Hospital Course: Pt seen and examined. I have reviewed the note of the medical investigator and agree with it. I have discussed the assessment and plan with the resident. I have reviewed the patient's labs and medications. Pt with neck pain that is better. She will be discharged to f/u with her spine surgeon. She does not wish to take narcotics at home. She was seen by Neurology and Cardiology. Her syncope is from vasovagal. Carotid doppler and Echo was reviewed.
[2018-04-05 10:40] VITALS: PULSE 105
== END 2018-04-05 11:54 | disposition home or self-care (01) ==
LOC: ED 20:41 → ERH 22:33 → 3RSO 23:14
PROVIDERS: ADMIT Internal Medicine Nephrology; ATTEND Internal Medicine Nephrology
DX: M48.02 Spinal stenosis, cervical region (principal); R55 Syncope and collapse; G47.30 Sleep apnea, unspecified; G89.29 Other chronic pain; I34.1 Nonrheumatic mitral (valve) prolapse; J45.909 Unspecified asthma, uncomplicated; L29.9 Pruritus, unspecified; M47.9 Spondylosis, unspecified; Z82.49 Family history of ischemic heart disease and other diseases of the circulatory system; Z90.49 Acquired absence of other specified parts of digestive tract; Z90.710 Acquired absence of both cervix and uterus; Z88.6 Allergy status to analgesic agent; Z88.0 Allergy status to penicillin
CPT/HCPCS: 70450; 71045; 80053; 81003; 82550; 83615; 83735; 84100; 84484; 85025; 85610; 85730; 93005; 93306; 93880; 96374; 96375; 96376; 97140; 97161; 97530; 99285; G0378; G0480; G8978; G8979; G8980; J1200; J2270